=== PATIENT | female | born 1965 | race African-American/Black ===

== ENCOUNTER 2018-12-24 15:58 | Emergency (ER) | payer BC ==
[2018-12-24] MEDS ORDERED: IBUPROFEN 400 MG TABLET PO ONE (17:36)
--- NOTE | 2018-12-24 17:38 | Emergency Department Record ---
History of Present Illness - General Chief Complaint: Neck Injury/Pain Stated Complaint: RT NECK PAIN Time Seen by Provider: 12/24/18 17:36 Source: Patient Mode of Arrival: Ambulatory Limitations: No limitations - History of Present Illness Initial Comments: 53 yo female presents to ED for evaluation of right sided neck spasm and pain symptoms that began last night. Patient denies injury or trauma, but reports that her symptoms worsened since last evening, reports moderate-severe pain with ROM of the neck. Patient denies fevers, chills, headache symptoms, ore recent illness. Patient does report taking "2 Aleve" earlier that has not significantly improved her symptoms. Patient denies health problems at her baseline. MD Complaint: Neck pain Onset/Timin -: Hour(s) Place: Home Severity: Moderate Quality: Aching, Dull Consistency: Constant Improves With: None Worsens With: Movement of neck Treatments Prior to Arrival: Naproxen - Related Data Home Medications Medication Instructions Recorded Confirmed Last Taken Diphenhydramine HCl [Benadryl] 50 mg PO QHS 12/24/18 12/24/18 1 Day Ago ~12/23/18 Previous Rx's Medication Instructions Recorded Diazepam [Valium] 5 mg PO Q8H PRN #15 tab 12/24/18 Ibuprofen [Motrin] 800 mg PO Q6H PRN #30 tab 12/24/18 Allergies Allergy/AdvReac Type Severity Reaction Status Date / Time No Known Drug Allergies Allergy Verified 12/24/18 16:47 Travel Screening - Travel/Exposure Within Last 30 Days Have you traveled within the last 30 days?: No - Travel/Exposure Within Last Year Have you traveled outside the [place] in the last year?: No - Additonal Travel Details Have you been exposed to anyone with a communicable illness?: No - Travel Symptoms Symptom Screening: None Review of Systems Constitutional: Denies: Chills, Fever, Malaise, Night sweats Eyes: Denies: Eye discharge, Eye pain ENT: Denies: Congestion, Ear pain, Epistaxis Respiratory: Denies: Cough, Dyspnea Cardiovascular: Denies: Chest pain, Dyspnea on exertion, Palpitations Endocrine: Denies: Fatigue, Heat or cold intolerance Gastrointestinal: Denies: Abdominal pain, Nausea, Vomiting Genitourinary: Denies: Incontinence, Retention Musculoskeletal: Reports: Myalgia, Neck pain. Denies: Arthralgia, Back pain, Gout Skin: Denies: Bruising, Change in color Neurological: Denies: Abnormal gait, Confusion, Headache, Tingling, Tremors Psychiatric: Denies: Anxiety Hematological/Lymphatic: Denies: Anemia, Blood Clots Past Medical History - SOCIAL HISTORY Smoking Status: Never smoker Alcohol Use: None Drug Use: None - RESPIRATORY Hx Respiratory Disorders: Yes Hx Bronchitis: Yes - CARDIOVASCULAR Hx Cardio Disorders: No - NEURO Hx Neuro Disorders: Yes Hx Headaches: Yes (seasonal) - GI Hx GI Disorders: No - Hx Genitourinary Disorders: No - ENDOCRINE Hx Endocrine Disorders: No Hx Diabetes: No Hx Thyroid Disease: No - MUSCULOSKELETAL Hx Musculoskeletal Disorders: No - PSYCH Hx Psych Problems: No - HEMATOLOGY/ONCOLOGY Hx Hematology/Oncology Disorders: No Family Medical History Any Significant Family History?: No Physical Exam - General General Appearance: Alert, Oriented x3, Cooperative, Moderate distress (Patient appears uncomfortable on examination due to muscle spasm) Limitations: No limitations - Head Head exam: Atraumatic, Normocephalic, Normal inspection Head exam detail: negative: Abrasion, Contusion, Beverly's sign, General tenderness, Hematoma, Laceration - Eye Eye exam: Normal appearance. negative: Conjunctival injection, Periorbital swelling, Periorbital tenderness, Scleral icterus - ENT Ear exam: negative: Auricular hematoma, Auricular trauma Nasal Exam: negative: Active bleeding, Discharge, Dried blood, Foreign body Mouth exam: negative: Drooling, Laceration, Muffled voice, Tongue elevation - Neck Neck exam: Tenderness, Other (TTP along the paracervical muscles of the right neck and trapezius muscles right. ). negative: Meningismus - Respiratory Respiratory exam: Normal lung sounds bilaterally. negative: Respiratory distress, Rhonchi, Stridor, Wheezes - Cardiovascular Cardiovascular Exam: Regular rate, Normal rhythm, Normal heart sounds - GI/Abdominal GI/Abdominal exam: Soft. negative: Distended, Rebound, Rigid, Tenderness - Rectal Rectal exam: Deferred - exam: Deferred - Extremities Extremities exam: Normal inspection. negative: Pedal edema, Tenderness - Back Back exam: Denies: CVA tenderness (R), CVA tenderness (L) - Neurological Neurological exam: Alert, Normal gait, Oriented X3 - Psychiatric Psychiatric exam: Normal affect, Normal mood - Skin Skin exam: Normal color. negative: Abrasion Type of lesion: negative: abrasion Course Vital Signs 12/24/18 16:38 Temperature 98.5 F Pulse Rate 79 Respiratory 16 Rate Blood Pressure 135/88 Pulse Ox 100 - Reevaluation(s) Reevaluation #1: 12/24/18 18:05 Patient denies trauma or injury on examination Radiographs are unlikely to be of benefit as a result. Patient denies headache symptoms, fever, history and examination are not suggestive of meningitis. Symptoms are reproducible with ROM of the neck, palpation of the right paracervical muscles and trapezius on examination, symptoms appear c/w myofacial strain/spasm. Will treat with Motrin 800 mg and Valium as directed. Patient appears stable for discharge at this time with symptomatic treatment as described above. Patient is in agreement with the plan of care as discussed. Disposition Disposition: Discharge Clinical Impression: Cervical paraspinal muscle spasm Disposition: Home, Self-Care Condition: (2) Stable Instructions: Muscle Spasm (ED) Additional Instructions: Return to ED if your symptoms worsen or if you have any concerns. Valium and Motrin 800 mg as directed. Follow-up with your family doctor in 3-5 days as directed. Prescriptions: Ibuprofen [Motrin] 800 mg PO Q6H PRN #30 tab PRN Reason: Pain - Mod To Severe (5-10) Diazepam [Valium] 5 mg PO Q8H PRN #15 tab PRN Reason: Spasms Forms: Patient Portal Access Time of Disposition: 17:37 Quality - Quality Measures Quality Measures: N/A - Blood Pressure Screening Does Patient Have Any of the Following: No Blood Pressure Classification: Pre-Hypertensive BP Reading Systolic Measurement: 135 Diastolic Measurement: 88 Screening for High Blood Pressure: < Pre-Hypertensive BP, F/U Documented > [G8950] Pre-Hypertensive Follow-up Interventions: Referral to alternative/primary care provider.
== END 2018-12-24 17:49 | disposition home or self-care (01) ==
LOC: ER 15:58
DX: M62.830 Muscle spasm of back (principal); M54.2 Cervicalgia
CPT/HCPCS: 99283